=== PATIENT | male | born 1980 | race Caucasian/White ===

== ENCOUNTER 2023-11-27 22:39 | Emergency (ER) | payer OTHER ==
[~2023-11-27] VITALS: Ht 162.6 cm; Wt 56.7 kg
[2023-11-28] MEDS ORDERED: SINGULAIR10 MG PO (05:02)
[2023-11-28] MEDS ORDERED: PROMETHAZINE-D473 M1 PO (05:02)
== END 2023-11-28 05:04 ==
LOC: ER 22:40
DX: R05.9 Cough, unspecified (principal)

== ENCOUNTER 2023-12-04 05:48 | Emergency (ER) | payer OTHER ==
[~2023-12-04] VITALS: Ht 180.3 cm; Wt 77.1 kg
[~2023-12-04 05:48] MED LIST: PROMETHAZINE-D473 M1 PO; SINGULAIR10 MG PO
[2023-12-04] MEDS ORDERED: KETO10TA2 PO (07:34)
[2023-12-04] MEDS ORDERED: AMOX-CLAV 875-1 EAC1 PO (07:41)
== END 2023-12-04 08:06 | disposition home or self-care (01) ==
LOC: ER
DX: S61.452A Open bite of left hand, initial encounter (principal); S61.451A Open bite of right hand, initial encounter; W54.0XXA Bitten by dog, initial encounter; Y93.9 Activity, unspecified; Y92.89 Other specified places as the place of occurrence of the external cause; Y99.9 Unspecified external cause status